=== PATIENT | male | born 1960 | race Caucasian/White ===

== ENCOUNTER 2023-06-24 11:38 | Emergency (ER) | payer MEDICAID ==
[~2023-06-24] VITALS: Ht 177.8 cm; Wt 118.0 kg
[2023-06-24 12:12] VITALS: BP 140/102; PULSE 78; RESP 20; TEMP 98.9; O2SAT 96
[2023-06-24] MEDS ORDERED: POLOS EACHEYE (12:35)
[2023-06-24] MEDS ORDERED: AMOX500C2 PO (12:35)
[2023-06-24] MEDS ORDERED: CefTRIAXone 1000mg IM Kit (w/lidocaine diluent) IM STA (12:36)
== END 2023-06-24 17:38 | disposition home or self-care (01) ==
LOC: ER 11:38
DX: J02.9 Acute pharyngitis, unspecified (principal); H10.89 Other conjunctivitis
CPT/HCPCS: 96372; 99283; J0696